=== PATIENT | female | born 1995 | race Caucasian/White ===

== ENCOUNTER 2018-09-21 19:50 | Emergency (ER) | payer SELFPAY ==
[~2018-09-21] VITALS: Ht 165.1 cm; Wt 102.2 kg
[2018-09-21] MEDS ORDERED: ACETAMINOPHEN 325 MG TABLET PO ONE (20:30)
[2018-09-21] MEDS ORDERED: ONDANSETRON ODT 4 MG PO ONE (20:30)
[2018-09-21] MEDS ORDERED: DEXAMETHASONE 4 MG TABLET PO ONE (20:30)
[2018-09-21] MEDS ORDERED: CBD (20:35)
[2018-09-21] MEDS ORDERED: ACETAMINOPHEN 325 MG TABLET ONE (20:37)
[2018-09-21] MEDS ORDERED: DEXAMETHASONE 4 MG TABLET ONE (20:37)
[2018-09-21] MEDS ORDERED: ONDANSETRON ODT 4 MG ONE (20:37)
[2018-09-21 20:45] LABS: BASOPHILS # (AUTO) 0.04 x10^3/uL (0-0.1); BASOPHILS % (AUTO) 0 % (0-1); EOSINOPHILS # (AUTO) 0.01 x10^3/uL (0-0.4); EOSINOPHILS % (AUTO) 0 % (1-7); LYMPHOCYTES # (AUTO) 2.17 x10^3/uL (1-3.4); LYMPHOCYTES % (AUTO) 15 % (22-44); MD NO; MEAN CORPUSCULAR HGB CONC 32.1 g/dL (32.4-35.8); MEAN CORPUSCULAR VOLUME 90.3 fL (80-100); MEAN PLATELET VOLUME 9.7 fL (7.4-10.4); MONOCYTES # (AUTO) 1.21 x10^3/uL (0.2-0.8); MONOCYTES % (AUTO) 8 % (2-9); NEUTROPHILS # (AUTO) 11.35 x10^3/uL (1.8-6.8); NEUTROPHILS % (AUTO) 77 % (42-75); PLATELET COUNT 256 x10^3/uL (130-400); RED BLOOD COUNT 4.37 x10^6/uL (3.82-5.3); RED CELL DISTRIBUTION WIDTH 14.1 % (9.6-15.2)
[2018-09-21 20:48] LABS: CULTURE INDICATED? YES; MICROSCOPIC INDICATED
[2018-09-21 20:55] LABS: ALANINE AMINOTRANSFERASE 28 U/L (12-78); ALBUMIN 3.3 g/dL (3.4-5.0); ANION GAP 5 mmol/L (5-15); CALCIUM 8.4 mg/dL (8.5-10.1); CHLORIDE 108 mmol/L (98-107); CREATININE 0.87 mg/dL (0.55-1.02)
[2018-09-21 20:59] LABS: ALKALINE PHOSPHATASE 111 U/L (45-117); BILIRUBIN,TOTAL 0.3 mg/dL (0.2-1.0); TOTAL PROTEIN 7.6 g/dL (6.4-8.2)
--- NOTE | 2018-09-21 21:00 | NUR ---
SBAR report received from Mich medina RN. Pt resting in room, returned from US.
--- NOTE | 2018-09-21 21:25 | NUR ---
Pelvic cart to bedside.
--- NOTE | 2018-09-21 21:44 | NUR ---
Pt resting on gurney, comfortable appearing, child on gurney with pt. Pt placed on monitors, VSS.
[2018-09-21 22:14] LABS: WET PREP WBCS FEW (FEW)
[2018-09-21 22:15] LABS: CLUE CELLS NONE SEEN (NONE SEEN)
--- NOTE | 2018-09-21 22:15 | NUR ---
Discussed with pt and pt's mother allergy to Omnicef and admin of Rocephin. Pt and pt's mother state that pt has had rocephin IM without issue. Kristine ARDON, made aware and states it is ok to give medication.
[2018-09-21] MEDS ORDERED: LIDOCAINE-MPF 1%, 2ML ONE (22:20)
[2018-09-21] MEDS ORDERED: CEFTRIAXONE 250 MG ONE (22:20)
[2018-09-21] MEDS ORDERED: AZITHROMYCIN 500 MG TABLET ONE (22:20)
[2018-09-21] MEDS ORDERED: AZITHROMYCIN 500 MG TABLET PO ONE (22:30)
[2018-09-21] MEDS ORDERED: CEFTRIAXONE 250 MG IM ONE (22:30)
--- NOTE | 2018-09-21 22:54 | NUR ---
Kristine ARDON, at bedside to discuss ED findings and POC.
--- NOTE | 2018-09-21 23:00 | NUR ---
Pt medicated per MAR.
[2018-09-21 23:13] VITALS: BP 104/46
--- NOTE | 2018-09-21 23:15 | NUR ---
Patient/Caregiver given discharge instructions and they have confirmed that they understand the instructions. Patient ambulatory with steady gait.
[2018-09-21] MEDS ORDERED: CEFTRIAXONE 1,000 MG IM ONE (23:30)
== END 2018-09-21 23:16 | disposition home or self-care (01) ==
LOC: ED 23:12
DX: A59.9 Trichomoniasis, unspecified (principal); J02.0 Streptococcal pharyngitis; R10.31 Right lower quadrant pain; R10.32 Left lower quadrant pain; R10.30 Lower abdominal pain, unspecified; R50.81 Fever presenting with conditions classified elsewhere; Z98.890 Other specified postprocedural states
CPT/HCPCS: 36415; 76830; 80053; 81001; 84703; 85025; 87086; 87210; 87491; 87591; 87808; 96372; 99284; J0696; Q0162